=== PATIENT | male | born 1965 | race Caucasian/White ===

== ENCOUNTER 2023-11-23 17:23 | Emergency (ER) | payer MEDICAID ==
[~2023-11-23] VITALS: Ht 175.3 cm; Wt 104.3 kg
[2023-11-23 17:38] VITALS: BP 145/89; PULSE 98; RESP 16; TEMP 97.9; O2SAT 96
[2023-11-23] MEDS ORDERED: DIPH25TA53 PO (18:15)
[2023-11-23] MEDS ORDERED: HYD1C TP (18:15)
[2023-11-23] MEDS: DEXAMETHASONE 10 MG/ML VIAL IM ONE (18:28)
[2023-11-23] MEDS: diphenhydrAMINE 50 MG/ML VIAL IM ONE (18:31)
== END 2023-11-23 18:48 | disposition home or self-care (01) ==
LOC: MED 17:23
DX: L30.9 Dermatitis, unspecified (principal); Z79.899 Other long term (current) drug therapy
CPT/HCPCS: 96372; 99284; J1100; J1200

== ENCOUNTER 2023-11-27 15:13 | Emergency (ER) | payer MEDICAID ==
[~2023-11-27] VITALS: Ht 175.3 cm; Wt 108.9 kg
[~2023-11-27 15:13] MED LIST: DIPH25TA53 PO; HYD1C TP
[2023-11-27 15:19] VITALS: BP 134/82; PULSE 112; RESP 19; TEMP 98.4; O2SAT 94
[2023-11-27] MEDS: LORATADINE 10 MG TAB PO ONE (16:29)
[2023-11-27] MEDS ORDERED: predniSONE 10 MG TAB ONE (16:31)
[2023-11-27] MEDS: predniSONE 10 MG TAB PO ONE (16:33)
[2023-11-27] MEDS ORDERED: PRED50TA2 PO (17:47)
[2023-11-27] MEDS ORDERED: ELIMC TP (17:49)
[2023-11-27] MEDS: diphenhydrAMINE 50 MG CAP PO ONE (18:03)
[2023-11-27 18:05] VITALS: BP 119/72; PULSE 91; RESP 18; TEMP 98.2; O2SAT 95
== END 2023-11-27 18:05 | disposition home or self-care (01) ==
LOC: MED 15:13
DX: L40.9 Psoriasis, unspecified (principal); L12.0 Bullous pemphigoid; L25.9 Unspecified contact dermatitis, unspecified cause; Z79.899 Other long term (current) drug therapy
CPT/HCPCS: 99284; J7512; Q0163

== ENCOUNTER 2024-05-11 16:35 | Emergency (ER) | payer MEDICAID, OTHER ==
[~2024-05-11] VITALS: Ht 170.2 cm; Wt 101.2 kg
[~2024-05-11 16:35] MED LIST changes: +ELIMC TP; +PRED50TA2 PO
[2024-05-11 16:52] VITALS: BP 135/86; PULSE 96; RESP 17; TEMP 98.4; O2SAT 94
[2024-05-11] MEDS: KETOROLAC 30 MG/ML VIAL IM ONE (18:29)
[2024-05-11] MEDS ORDERED: KETO10TA2 PO (19:03)
[2024-05-11] MEDS ORDERED: METH-1681 PO (19:03)
== END 2024-05-11 19:12 | disposition home or self-care (01) ==
LOC: MED 16:35
DX: S76.012A Strain of muscle, fascia and tendon of left hip, initial encounter (principal); S76.011A Strain of muscle, fascia and tendon of right hip, initial encounter; M16.0 Bilateral primary osteoarthritis of hip; R03.0 Elevated blood-pressure reading, without diagnosis of hypertension; Z79.899 Other long term (current) drug therapy; X58.XXXA Exposure to other specified factors, initial encounter; Y93.89 Activity, other specified; Y92.89 Other specified places as the place of occurrence of the external cause; Y99.8 Other external cause status
CPT/HCPCS: 73521; 96372; 99283; J1885